=== PATIENT | female | born 1940 | race Caucasian/White ===

== ENCOUNTER 2017-07-18 14:37 | Emergency (ER) | payer MEDICARE ==
[~2017-07-18] VITALS: Ht 162.6 cm; Wt 74.4 kg
[2017-07-18 18:18] VITALS: BP 138/80
== END 2017-07-18 15:25 | disposition home or self-care (01) ==
LOC: FSED 14:37
DX: R05 Cough (principal); J30.2 Other seasonal allergic rhinitis; I10 Essential (primary) hypertension; E78.5 Hyperlipidemia, unspecified

== ENCOUNTER 2017-09-20 09:09 | Emergency (ER) | payer MEDICARE ==
[~2017-09-20] VITALS: Ht 91.4 cm; Wt 73.5 kg
--- OUTSIDE RECORDS SUMMARY | 2017-09-20 09:11 | XMS REPORT | Continuity of Care Document ---
Author Author [facility] Organization [facility] Address [address] [place] [place] [address] Phone Unavailable Care Team Providers Care Quality Assurance Clerk Name Role Phone NONSTAFF PCP Unavailable Insurance Providers Guarantor Denae Lujan Address [address] [place] [place] [address] Email NONE Payer [employer] Medicare Advantage Policy Number [id number] Subscriber's Name Denae Lujan Relationship 19 Self / Same As Patient Group Name RETIRED Advance Directives Directive Response Recorded Date/Time Does the patient have an advance directive? No 07/18/17 3:27pm If yes, is advance directive on file with [facility]? No 07/18/17 3:27pm If not on file with [facility] will patient provide a copy? No 07/18/17 3:27pm Do you have a Directive to Physician? No 07/18/17 3:27pm Do you have a Medical Power of Facility Maintenance Mechanic? No 07/18/17 3:27pm Do you have an out of hospital Do Not Resuscitate Order? No 07/18/17 3:27pm Do you have any special needs we should be aware of? No 07/18/17 3:27pm Do you have a support person here with you today? Yes 07/18/17 3:27pm Did patient receive Notice of Privacy Practices? Yes 07/18/17 3:27pm Did patient receive patient rights and responsibilities? Yes 07/18/17 3:27pm Problems No problem information available. Medications No medication information available. Social History Smoking Status Start Date Stop Date Never Smoker Hospital Discharge Instructions No hospital discharge instruction information available. Plan of Care Discharge Date 07/18/17 3:25pm Disposition HOME, SELF-CARE Condition at Discharge Stable Forms Provided Work/School Excuse Prescriptions See Medication Section Referrals Colby Deleon MD Additional Instructions/Education Return to the closest emergency room if symptoms worsen. Take medication as prescribed.Fill your prescription immediately after leaving the ER. Follow up with your primary care physician tomorrow Functional Status No functional status information available. Allergies, Adverse Reactions, Alerts Allergen Type Severity Reaction Status Last Updated Penicillin Allergy Severe HIVES/RASH Active 07/18/17 Immunizations No immunization information available. Vital Signs Acute Vital Signs Vital Response Date/Time Temperature (Fahrenheit) 97.0 degrees F (97.6 - 99.5) 07/18/2017 6:18pm Pulse Pulse Rate (adult) 70 bpm (60 - 90) 07/18/2017 6:18pm Respiratory Rate 16 bpm (12 - 24) 07/18/2017 6:18pm Blood Pressure 138/80 mm Hg 07/18/2017 6:18pm Height 5 ft 4 in 07/18/2017 2:50pm Weight 164 lb 07/18/2017 2:50pm Body Mass Index 28.1 kg/m^2 07/18/2017 2:50pm Results No relevant diagnostic test, laboratory data and/or discharge summary information available. Procedures No procedure information available. Encounters Encounter Location Arrival/Admit Date Discharge/Depart Date Attending Provider Departed Emergency Room [facility] 07/18/17 2:37pm 3:25pm EVELYN MOURA MD
[2017-09-20] MEDS ORDERED: LISINOPRIL2.5 MG PO (09:53)
[2017-09-20] MEDS ORDERED: PLAVIX75 MG PO (09:53)
[2017-09-20] MEDS ORDERED: LOPRESSOR25 MG PO (09:53)
[2017-09-20] MEDS ORDERED: NIACIN500 M2 PO (09:55)
[2017-09-20 11:00] VITALS: BP 150/70
== END 2017-09-20 11:17 | disposition home or self-care (01) ==
LOC: FSED 09:09
DX: R20.2 Paresthesia of skin (principal); I10 Essential (primary) hypertension; M48.07 Spinal stenosis, lumbosacral region; M48.061 Spinal stenosis, lumbar region without neurogenic claudication
CPT/HCPCS: 70496; 72126; 72128; 99283

== ENCOUNTER 2017-12-22 12:14 | Emergency (ER) | payer MEDICARE ==
[~2017-12-22] VITALS: Ht 160 cm; Wt 73.5 kg
[~2017-12-22 12:14] MED LIST: LISINOPRIL2.5 MG PO; LOPRESSOR25 MG PO; NIACIN500 M2 PO; PLAVIX75 MG PO
[2017-12-22] MEDS ORDERED: AZITHROMYCIN 250 MG TAB PO ONE (13:45)
[2017-12-22 14:02] VITALS: BP 147/66
== END 2017-12-22 14:11 | disposition home or self-care (01) ==
LOC: FSED 12:14
DX: R05 Cough (principal); J20.9 Acute bronchitis, unspecified
CPT/HCPCS: 71046; 80053; 81003; 83880; 84484; 85025; 85379; 99283